=== PATIENT | male | born 1945 | race Caucasian/White ===

== ENCOUNTER 2019-04-30 15:33 | Emergency (ER) | payer MEDICARE ==
--- OUTSIDE RECORDS SUMMARY | 2019-04-30 15:40 | XMS REPORT | Continuity of Care Document ---
:1945 External Reference #:[id number] Author Name Patrick Arceo M.D. 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 Onset: 03/29/2015 Polymyalgia rheumatica Solomon Quiñonez M.D. Onset: 03/29/2015 Taking medication Solomon Quiñonez M.D. Onset: 03/29/2015 Rheumatoid arthritis Solomon Quiñonez M.D. Onset: 06/21/2015 Social History Type Date Description Comments Sex Unknown Tobacco Use Start: Unknown End: Former Cigarette Smoker Unknown Smoking Status Reviewed: 04/29/19 Former Cigarette Smoker ETOH Use Rarely consumes alcohol Tobacco Use Start: Unknown End: Patient is a former quit in 1979. Used Unknown smoker to smoke 2 PPD Exercise Exercises regularly Type/Frequency Allergies, Adverse Reactions, Alerts Active Allergies Reaction Severity Comments Date Doxycycline neuro symptoms/ tingling Moderate 03/29/2015 Medications Active Medications SIG Qnty Indications Ordering Date Provider Prednisone take one 90tabs M05.89 Patrick 5mg Tablets capsule/tablet Orlando Arceo 9 daily by mouth Nexium Take one 30caps Patrick 40mg Capsules DR capsule/tablet Orlando Arceo 8 daily by mouth Cyanocobalamin take one 90tabs Patrick 2500mcg Tablets capsule/tablet Orlando Arceo 7 Sub daily sublingallly Vitamin D3 High Potency Take one M05.89 Patrick capsule/tablet Orlando Arceo 6 1000Unit Capsules daily by mouth Folic Acid 1 by mouth every 90tabs M05.89 Patrick 1mg Tablets day Orlando Arceo 5 Methotrexate take 4 tablets 128tabs M13.0 Patrick 2.5mg Tablets each sunday Orlando Arceo 5 weekly Aspirin Adult Low Dose 1 by mouth every Unknown 81mg day [address] Hydrochlorothiazide 1 by mouth every Unknown 25mg day 0 Tablets Eylea inj. 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 Unknown 1000mg Capsules 0 Immunizations Description No Information Available Vital Signs Date Vital Result Comment 04/29/2019 11:03am Height 67.5 inches 5'7.50" Weight 221.00 lb Heart Rate 57 /min BP Systolic Sitting 128 mmHg BP Diastolic Sitting 80 mmHg Pain Level 5 O2 % BldC Oximetry 98 % BMI (Body Mass Index) 34.1 kg/m2 01/21/2019 10:53am Height 67.5 inches 5'7.50" Weight 226.50 lb Heart Rate 59 /min BP Systolic Sitting 132 mmHg BP Diastolic Sitting 78 mmHg Pain Level 2 O2 % BldC Oximetry 98 % BMI (Body Mass Index) 34.9 kg/m2 Results Test Date Facility Test Result H/L Range Note Laboratory test 04/11/2019 [facility] Erythrocyte Sed 17 mm/Hr Normal 0-19 [address] [place] [address] [phone] C Reactive Protein 2.43 mg/L Normal <8.01 2 Protein 04/11/2019 [facility] Total 7.2 g/dL 6.3 - Electrophoresis [address] Protein(Pep) 7.9 [place] [address] [phone] Albumin 3.7 g/dL 3.4-4.7 Alpha-1 Globulin 0.3 g/dL 0.1-0.3 Alpha-2 Globulin 0.9 g/dL 0.6-1.0 Beta Globulin 1.3 g/dL Abnormal 0.7-1.2 Gamma Globulin 1.1 g/dL 0.6-1.6 Albumin/Globulin Ratio 1.04 Impression See Comment 3 Comp Metabolic 04/11/2019 [facility] Sodium 139 mmol/L Normal 135-[address] [place] [address] [phone] Potassium 4.1 mmol/L Normal 3.5-5.0 Chloride 107 mmol/L Normal 101-111 Co2 Carbon Dioxide 27 mmol/L Normal 22-32 Anion Gap 5 mmol/L Normal 2-11 Glucose 91 mg/dL Normal 70-100 Blood Urea Nitrogen 16 mg/dL Normal 6-24 Creatinine 1.22 mg/dL High 0.67-1.17 BUN/Creatinine Ratio 13.1 Normal 8-20 Calcium 9.6 mg/dL Normal 8.6-10.3 Total Protein 6.8 g/dL Normal 6.4-8.9 Albumin 4.1 g/dL Normal 3.2-5.2 Globulin 2.7 g/dL Normal 2-4 Albumin/Globulin Ratio 1.5 Normal 1-3 Total Bilirubin 1.60 mg/dL High 0.2-1.0 Alkaline Phosphatase 84 U/L Normal 34-104 Alt 14 U/L Normal 7-52 Ast 13 U/L Normal 13-39 Egfr Non- 57.9 >60 Egfr 70.1 >60 4 CBC Auto 04/11/2019 [facility] White Blood 5.3 10^3/uL Normal 3.5-10.[address] [place] [address] [phone] Red Blood Count 4.81 10^6/uL Normal 4.18-5.48 Hemoglobin 14.8 g/dL Normal 14.0-18.0 Hematocrit 43 % Normal 42-52 Mean Corpuscular Volume 90 fL Normal 80-94 Mean Corpuscular Hemoglobin 31 pg Normal 27-31 Mean Corpuscular HGB Conc 34 g/dL Normal 31-36 Red Cell Distribution Width 15 % Normal 10-15 Platelet Count 242 10^3/uL Normal 150-450 Mean Platelet Volume 7.8 fL Normal 7.4-10.4 Abs Neutrophils 3.4 10^3/uL Normal 1.5-7.7 Abs Lymphocytes 1.3 10^3/uL Normal 1.0-4.8 Abs Monocytes 0.4 10^3/uL Normal 0-0.8 Abs Eosinophils 0.1 10^3/uL Normal 0-0.6 Abs Basophils 0.0 10^3/uL Normal 0-0.2 Abs Nucleated RBC 0.0 10^3/uL Granulocyte % 64.6 % Lymphocyte % 25.1 % Monocyte % 7.5 % Eosinophil % 2.0 % Basophil % 0.8 % Nucleated Red Blood Cells % 0.1 CBC Auto 01/15/2019 [facility] White Blood 5.6 10^3/uL Normal 3.5-10.[address] [place] [address] [phone] Red Blood Count 4.43 10^6/uL Normal 4.18-5.48 Hemoglobin 13.6 g/dL Low 14.0-18.0 Hematocrit 40 % Low 42-52 Mean Corpuscular Volume 91 fL Normal 80-94 Mean Corpuscular Hemoglobin 31 pg Normal 27-31 Mean Corpuscular HGB Conc 34 g/dL Normal 31-36 Red Cell Distribution Width 14 % Normal 10-15 Platelet Count 259 10^3/uL Normal 150-450 Mean Platelet Volume 7.8 fL Normal 7.4-10.4 Abs Neutrophils 3.5 10^3/uL Normal 1.5-7.7 Abs Lymphocytes 1.4 10^3/uL Normal 1.0-4.8 Abs Monocytes 0.5 10^3/uL Normal 0-0.8 Abs Eosinophils 0.2 10^3/uL Normal 0-0.6 Abs Basophils 0.0 10^3/uL Normal 0-0.2 Abs Nucleated RBC 0.0 10^3/uL Granulocyte % 62.3 % Lymphocyte % 24.0 % Monocyte % 9.6 % Eosinophil % 3.5 % Basophil % 0.6 % Nucleated Red Blood Cells % 0.0 Comp Metabolic 01/15/2019 [facility] Sodium 139 mmol/L Normal 135-[address] [place] [address] [phone] Potassium 3.5 mmol/L Normal 3.5-5.0 Chloride 104 mmol/L Normal 101-111 Co2 Carbon Dioxide 29 mmol/L Normal 22-32 Anion Gap 6 mmol/L Normal 2-11 Glucose 95 mg/dL Normal 70-100 Blood Urea Nitrogen 20 mg/dL Normal 6-24 Creatinine 1.43 mg/dL High 0.67-1.17 BUN/Creatinine Ratio 14.0 Normal 8-20 Calcium 9.2 mg/dL Normal 8.6-10.3 Total Protein 6.5 g/dL Normal 6.4-8.9 Albumin 4.0 g/dL Normal 3.2-5.2 Globulin 2.5 g/dL Normal 2-4 Albumin/Globulin Ratio 1.6 Normal 1-3 Total Bilirubin 0.90 mg/dL Normal 0.2-1.0 Alkaline Phosphatase 78 U/L Normal 34-104 Alt 11 U/L Normal 7-52 Ast 11 U/L Low 13-39 Egfr Non- 48.2 >60 Egfr 58.3 >60 5 Laboratory test 01/15/2019 [facility] Erythrocyte Sed 31 mm/Hr High 0-[address] [place] [address] [phone] C Reactive Protein 2.46 mg/L Normal <8.01 1 Please check labs 2 days before follow up 2 Please check labs 2 days before follow up 3 RESULT: No apparent monoclonal protein on serum electrophoresis. Test Performed by: [facility] [address] [place] [address] Grain Elevator Worker: Forrest Ta M.D. Ph.D.; IA# [id number] 4 Because ethnic data is not always readily available, this report includes an eGFR for both -Americans and non- Americans. The National Kidney Disease Education Program (NKDEP) does not endorse the use of the MDRD equation for patients that are not between the ages of 18 and 70, are , have extremes of body size, muscle mass, or nutritional status, or are non- or non-. According to the National Kidney Foundation, irrespective of diagnosis, the stage of the disease is based on the level of kidney function: Stage Description GFR(mL/min/1.73 m(2)) 1 Kidney damage with normal or decreased GFR 90 2 Kidney damage with mild decrease in GFR 60-89 3 Moderate decrease in GFR 30-59 4 Severe decrease in GFR 15-29 5 Kidney failure <15 (or dialysis) 5 Because ethnic data is not always readily available, this report includes an eGFR for both -Americans and non- Americans. The National Kidney Disease Education Program (NKDEP) does not endorse the use of the MDRD equation for patients that are not between the ages of 18 and 70, are , have extremes of body size, muscle mass, or nutritional status, or are non- or non-. According to the National Kidney Foundation, irrespective of diagnosis, the stage of the disease is based on the level of kidney function: Stage Description GFR(mL/min/1.73 m(2)) 1 Kidney damage with normal or decreased GFR 90 2 Kidney damage with mild decrease in GFR 60-89 3 Moderate decrease in GFR 30-59 4 Severe decrease in GFR 15-29 5 Kidney failure <15 (or dialysis) Procedures Description No Information Available Medical Devices Description No Information Available Encounters Type Date Location Provider Dx Diagnosis Office Visit 01/21/2019 Rheumatology Paulino Khoury.89 [facility] rheumatoid 10:40a [facility] arthritis w rheumatoid factor mult site N18.9 Chronic kidney disease, unspecified M17.9 Osteoarthritis of knee, unspecified Z79.899 Other jail (current) drug therapy Assessments Date Code Description Provider 04/29/2019 M05.89 Other rheumatoid arthritis with rheumatoid Patrick Arceo M.D. factor of multiple sites 04/29/2019 N18.9 Chronic kidney disease, unspecified Patrick Arceo M.D. 04/29/2019 M06.4 Inflammatory polyarthropathy Patrick Arceo M.D. 04/29/2019 M35.3 Polymyalgia rheumatica Patrick Arceo M.D. 04/29/2019 Z79.52 penitentiary (current) use of systemic steroids Patrick Arceo M.D. 01/21/2019 M05.89 Other rheumatoid arthritis with rheumatoid Patrick Arceo M.D. factor of multipl 01/21/2019 N18.9 Chronic kidney disease, unspecified Patrick Arceo M.D. 01/21/2019 M17.9 Osteoarthritis of knee, unspecified Patrick Arceo M.D. 01/21/2019 Z79.899 Other jail (current) drug therapy Patrick Arceo M.D. Plan of Treatment Future Appointment(s):06/05/2019 11:40 am - Patrick Arceo M.D. at [facility]04/29/2019 - Patrick Arceo M.D.M05.89 Other rheumatoid arthritis with rheumatoid factor of multiple sitesNew Medication:Prednisone 5 mg - take one capsule/tablet daily by mouthComments:I am glad to hear that you had a flu vaccine this month and that you are up to date on your pneumonia vaccines!N18.9 Chronic kidney disease, uqttiuohwafZ67.4 Inflammatory cepxuszatdntyihQ14.3 Polymyalgia cvwjmgnypsG81.52 penitentiary (current) use of systemic steroidsFollow up:Follow up in 4 to 6 weeks or sooner if needed Functional Status Description No Information Available Mental Status Description No Information Available Referrals Description No Information Available
--- OUTSIDE RECORDS SUMMARY | 2019-04-30 15:41 | XMS REPORT | Continuity of Care Document ---
:1945 External Reference #:[id number] Author Name Donny Lemos D.O. 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 Onset: 03/02/2015 Psychogenic impotence Donny Lemos D.O. Onset: 10/21/2015 Essential hypertension Donny Lemso D.O. Onset: 10/21/2015 Gastroesophageal reflux disease Donny Lemos D.O. Onset: 10/21/2015 Vitamin D deficiency Donny Lemos D.O. Onset: 09/18/2016 Pure hypercholesterolemia Donny Lemos D.O. Onset: 09/18/2016 Rheumatoid arthritis Donny Lemos D.O. Onset: 06/15/2017 Social History Type Date Description Comments Sex Unknown Tobacco Use Start: Unknown Denies Cigarette Use ETOH Use Occassional Alcohol Recreational Drug Use Denies Drug Use Tobacco Use Start: Unknown Non Smoker Smoking Status Reviewed: 03/06/19 Non Smoker Exercise Type/Frequency Exercises regularly Sun Exposure Does not use sunscreen Seat Belt/Car Seat Seat Belt Use - Yes Allergies, Adverse Reactions, Alerts Active Allergies Reaction Severity Comments Date Doxycycline tingling sensation 03/02/2015 Medications Active Medications SIG Qnty Indications Ordering Date Provider Pantoprazole Sodium take 1 tablet 90tabs Donny Lemos, 01/16/2019 daily before D.O. 20mg Tablets DR breakfast Losartan Potassium take 1 tablet 90tabs Donny Lemos, 04/30/2018 50mg daily in the D.O. Tablets morning for diabetic kidney protection Symbicort 2 puffs 2x/day; 13.8gm R05 Donny Lemos, 04/22/2018 80-4.5mcg/Act gargle after use D.O. Aerosol Meloxicam 1 by mouth every 90tabs M79.671 TanmayDonny asencio, 06/22/2017 7.5mg Tablets day D.O. M17.0 Vitamin B12 Unknown 06/14/2017 Vitamin D Unknown 06/14/2017 Simvastatin 1 by mouth every 90tabs E78.00 Canelo Donny, 09/18/2016 20mg Tablets day D.O. Eylea Injection 1 x a Unknown 09/17/2016 month Proair HFA inhale 2 puffs by 8.500gm J20.9 JaelDonny aleman, 02/25/2016 108(90Base) mouth every 4 hours D.O. mcg/Act Aerosol if needed wheezing Methotrexate 5 tabs each week Patrick Arceo 09/13/2015 2.5mg Tablets M.D. Folic Acid 1 by mouth every Unknown 06/21/2015 1mg Tablets day Aspirin 1 by mouth every 90tabs CaneloDonny, 03/02/2015 81mg Tablets day D.O. Prednisone Patrick Arceo 2.5mg Tablets M.D. Medications Administered in Office Medication SIG Qnty Indications Ordering Provider Date Influenza, Unspecified Unknown 02/28/2018 Injection Immunizations CPT Code Status Date Vaccine Lot # [id number] Given 03/06/2019 Influenza Vaccine, Inactivated, Subunit, [id number] Adjuvanted, For Intrmusc 04839 Given 01/15/2019 Shingrix Zoster (Shingles) Vaccine (HZV) Recomb,Subnit,Adjuvanted 18154 Given 10/30/2018 Shingrix Zoster (Shingles) Vaccine (HZV) Recomb,Subnit,Adjuvanted 75445 Given 02/26/2018 Flu, Split Virus 3Yrs 76056 Given 05/16/2017 Influenza Virus Vaccine, Quadrivalent, Split, Preservative Free 12856 Given 05/02/2017 Adacel or Boostrix, TDaP 99268 Given 03/16/2015 Prevnar 13 Vital Signs Date Vital Result Comment 03/06/2019 4:35pm BP Systolic 120 mmHg BP Diastolic 80 mmHg Weight 228.00 lb 01/16/2019 9:42am BP Systolic 122 mmHg BP Diastolic 64 mmHg Height 67.5 inches 5'7.50" Weight 227.00 lb BMI (Body Mass Index) 35.0 kg/m2 Results Description No Information Available Procedures Date Code Description Status 03/06/2019 66252 X-Ray Ankle Three Views Completed 05/06/2018 32705767 Colonoscopy Completed Medical Devices Description No Information Available Encounters Type Date Location Provider Dx Diagnosis Office Visit 03/06/2019 Main Office Donny Lemos, M25.572 Pain in left ankle 4:30p D.O. and joints of left foot R60.9 Edema, unspecified J44.1 Chronic obstructive pulmonary disease w (acute) exacerbation I10 Essential (primary) hypertension K21.9 Gastro-esophageal reflux disease without esophagitis M35.3 Polymyalgia rheumatica M06.9 Rheumatoid arthritis, unspecified Z23 Encounter for immunization Z41.8 Encntr for oth proc for purpose oth than [facility] M77.32 Calcaneal spur, left foot Assessments Date Code Description Provider 03/06/2019 M25.572 Pain in left ankle and joints of left foot Donny Lemos D.O. 03/06/2019 R60.9 Edema, unspecified Donny Lemos, D.O. 03/06/2019 J44.1 Chronic obstructive pulmonary disease with Donny Lemos, D.O. (acute) exacerbat 03/06/2019 I10 Essential (primary) hypertension Donny Lemos D.O. 03/06/2019 K21.9 Gastro-esophageal reflux disease without Donny Lemos, D.O. esophagitis 03/06/2019 M35.3 Polymyalgia rheumatica Donny Lemos D.O. 03/06/2019 M06.9 Rheumatoid arthritis, unspecified Donny Lemos, D.O. 03/06/2019 Z23 Encounter for immunization Donny Lemos D.O. 03/06/2019 Z41.8 Encounter for other procedures for purposes [facility] 03/06/2019 M77.32 Calcaneal spur, left foot Donny Lmeos D.O. 01/16/2019 J44.1 Chronic obstructive pulmonary disease with [place], Donny, D.O. (acute) exacerbat 01/16/2019 I10 Essential (primary) hypertension Donny Lemos D.O. 01/16/2019 K21.9 Gastro-esophageal reflux disease without Donny Lemos D.O. esophagitis 01/16/2019 M35.3 Polymyalgia rheumatica Donny Lemos D.O. 01/16/2019 M06.9 Rheumatoid arthritis, unspecified Donny Lemos D.O. 01/16/2019 R94.4 Abnormal results of kidney function studies Donny Lemos D.O. 01/16/2019 Z68.35 Body mass index (BMI) 35.0-35.9, adult Donny Lemos D.O. Plan of Treatment Future Appointment(s):01/19/2020 9:15 am - Donny Lemos D.O. at Main Oqtovr9207/22/2019 10:00 am - Donny Lemos D.O. at Main Wtrzlm4403/06/2019 - Donny Lemos D.O.M25.572 Pain in left ankle and joints of left footR60.9 Edema, ukfvxldleutL00.1 Chronic obstructive pulmonary disease with (acute) rlidalwdgM84 Essential (primary) kxprnlpefakfU80.9 Gastro-esophageal reflux disease without nivqwwalwurJ62.3 Polymyalgia mpoyifclrbN48.9 Rheumatoid arthritis, hrawzvvcgjfV17 Encounter for yxlddwbebjhsM85.8 Encounter for other procedures for purposes other than remedying health wgufuB56.32 Calcaneal spur, left foot Functional Status Description No Information Available Mental Status Description No Information Available Referrals Description No Information Available
[2019-04-30 17:37] VITALS: BP 125/85
--- NOTE | 2019-04-30 18:42 | UC ---
Throat Pain/Nasal Bacilio HPI - HPI Summary HPI Summary: 73-year-old male comes in with a chief complaint of one day of upper respiratory tract infection symptoms. Patient reports some rhinorrhea is gone into his chest is having yellow sputum. Patient is on methotrexate and prednisone daily for rheumatoid arthritis and therefore he is immunocompromised. Patient stopped taking his methotrexate when he started feeling ill because he knows it has interaction with antibiotics. Patient reports that when he has these symptoms he ends up quickly going into a pneumonia. Is also having some wheezing. - History of Current Complaint Chief Complaint: UCRespiratory Stated Complaint: COLD/FLU Time Seen by Provider: 04/30/19 18:28 Pain Intensity: 2 - Allergies/Home Medications Allergies/Adverse Reactions: Allergies Allergy/AdvReac Type Severity Reaction Status Date / Time doxycycline AdvReac Intermediate See Comment Verified 04/30/19 17:26 Home Medications: Home Medications Aspirin EC TAB* [Ecotrin EC Low Dose 81 MG*] 81 mg PO DAILY 04/30/19 [History Confirmed 04/30/19] Cholecalciferol (Vitamin D3) [Vitamin D3] 1 cap DAILY 04/30/19 [History Confirmed 04/30/19] Cyanocobalamin TAB* [Vitamin B12 TAB*] 2,000 mcg PO DAILY 04/30/19 [History Confirmed 04/30/19] Folic Acid TAB* [Folvite TAB*] 1 mg PO DAILY 04/30/19 [History Confirmed ] Losartan TAB* [Cozaar TAB*] 50 mg PO DAILY 04/30/19 [History Confirmed 04/30/19] Methotrexate TAB* 5 tab WEEKLY 04/30/19 [History Confirmed 04/30/19] Pantoprazole TAB * [Protonix TAB*] 20 mg PO DAILY 04/30/19 [History Confirmed ] predniSONE TAB* [Deltasone TAB*] 5 mg PO DAILY 04/30/19 [History Confirmed 04/30] PMH/Surg Hx/FS Hx/Imm Hx Previously Healthy: Yes - rheumatoid arthritis Cardiovascular History: Hypertension GI/ History: Gastroesophageal Reflux - Surgical History Surgical History: Yes Surgery Procedure, Year, and Place: Hemorrhoids - Family History Known Family History: Positive: Hypertension, Other - autoimmune disease - Social History Alcohol Use: None Substance Use Type: None Smoking Status (MU): Former Smoker When Did the Patient Quit Smoking/Using Tobacco: 30 yrs ago Review of Systems All Other Systems Reviewed And Are Negative: Yes Constitutional: Positive: Other - SEE HPI Skin: Positive: Negative Eyes: Positive: Negative ENT: Positive: Nasal Discharge Respiratory: Positive: Cough, Other - SEE HPI Cardiovascular: Positive: Negative Gastrointestinal: Positive: Negative Motor: Positive: Negative Neurovascular: Positive: Negative Musculoskeletal: Positive: Negative Neurological: Positive: Negative Psychological: Positive: Negative Is Patient Immunocompromised?: No Physical Exam Triage Information Reviewed: Yes Appearance: Well-Appearing, No Pain Distress, Well-Nourished Vital Signs: Initial Vital Signs Temp 98.3 F 04/30/19 17:32 Pulse 64 04/30/19 17:32 Resp 16 04/30/19 17:32 BP 125/85 04/30/19 17:32 Pulse Ox 100 04/30/19 17:32 Vital Signs Reviewed: Yes Eye Exam: Normal ENT: Positive: Pharyngeal erythema, Nasal congestion, TMs normal Neck: Positive: Supple Respiratory: Positive: No respiratory distress, Wheezing Cardiovascular: Positive: RRR Musculoskeletal: Positive: Strength Intact, ROM Intact Neurological: Positive: Alert, Muscle Tone Normal Psychological: Positive: Age Appropriate Behavior Skin Exam: Normal Throat Pain/Nasal Course/Dx - Course Course Of Treatment: I discussed viral versus bacterial infections with the patient. Patient prefers to be on antibiotic at this time. The patient is immunocompromised because of his rheumatoid arthritis being on prednisone and methotrexate. Patient did not take his methotrexate today because he knows it interacts with antibiotics and he plans to stay off the methotrexate while he is on the antibiotics. Patient reports that azithromycin does not work for him. He reports an acceptable side effects with doxycycline. We'll treat with Augmentin plus azithromycin. We discussed the possibilities and Levaquin however with the potential problems with tendon injury we are avoiding Levaquin at this time. With the wheezing we will also treat with albuterol. Patient's to get reevaluated if worse or any questions or concerns. - Differential Dx/Diagnosis Provider Diagnosis: Bronchitis with bronchospasm Discharge ED - Sign-Out/Discharge Documenting (check all that apply): Patient Departure All imaging exams completed and their final reports reviewed: No Studies - Discharge Plan Condition: Stable Disposition: HOME Prescriptions: Albuterol HFA INHALER* [Ventolin HFA Inhaler*] 2 puff INH Q4H PRN #1 mdi PRN Reason: Wheezing Amoxicillin/Clavulanate TAB* [Augmentin TAB 875*] 875 mg PO BID #20 tab Azithromyxin ALIRIO (NF) [Z-Alirio (Zithromax) 250 mg tabs #6] 2 tab PO .TODAY, THEN 1 DAILY #6 tab Patient Education Materials: Acute Bronchitis (ED), Bronchospasm (ED) Referrals: Donny Lemos DO [Primary Care Provider] - Additional Instructions: FOLLOW UP WITH YOUR DOCTOR. Do not take the methotrexate while you're on the antibiotics. GO TO THE EMERGENCY DEPARTMENT IF NOT IMPROVING OR YOUR CONDITION WORSENS OR ANY QUESTIONS OR CONCERNS. - Billing Disposition and Condition Condition: STABLE Disposition: Home
== END 2019-04-30 18:48 | disposition home or self-care (01) ==
LOC: UCCORT 15:33
DX: J98.01 Acute bronchospasm (principal); J40 Bronchitis, not specified as acute or chronic; M06.9 Rheumatoid arthritis, unspecified; I10 Essential (primary) hypertension; K21.9 Gastro-esophageal reflux disease without esophagitis; J39.2 Other diseases of pharynx; R09.81 Nasal congestion; Z79.899 Other long term (current) drug therapy; Z87.891 Personal history of nicotine dependence; Z88.8 Allergy status to other drugs, medicaments and biological substances
CPT/HCPCS: 99212; G0463

== ENCOUNTER 2019-09-11 08:40 | Emergency (ER) | payer MEDICARE ==
--- OUTSIDE RECORDS SUMMARY | 2019-09-11 08:59 | XMS REPORT | Continuity of Care Document ---
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 Onset: 03/02/2015 Psychogenic impotence Donny Lemos D.O. Onset: 10/21/2015 Essential hypertension Donny Lemos D.O. Onset: 10/21/2015 Gastroesophageal reflux disease Donny [...] Start: Unknown Non Smoker Smoking Status Reviewed: 08/04/19 Non Smoker Exercise Type/Frequency Exercises regularly Sun [...] Meloxicam 1 by mouth every 90tabs M79.671 Donny Lemos, 06/22/2017 7.5mg Tablets day D.O. M17.0 Vitamin B12 Unknown 06/14/2017 Vitamin D Unknown 06/14/2017 Eylea Injection 1 x a Unknown 09/17/2016 month Proair HFA inhale 2 puffs by 8.500gm J20.9 Donny Lemos, 02/25/2016 108(90Base) mouth every 4 hours D.O. mcg/Act Aerosol if needed wheezing Methotrexate 5 tabs each week Patrick Arceo 09/13/2015 2.5mg Tablets M.D. Folic Acid 1 by mouth every day Unknown 06/21/2015 1mg Tablets Aspirin 1 by mouth every day 90tabs Donny Lemos, 03/02/2015 81mg Tablets D.O. Prednisone Patrick Arceo 2.5mg Tablets M.D. Medications Administered in Office Medication SIG Qnty Indications Ordering Provider Date Influenza, Unspecified Unknown 02/28/2018 Injection Immunizations CPT Code Status Date Vaccine Lot # [id number] Given 04/11/2019 Pneumococcal Immunization 36362 Given 03/06/2019 Influenza Vaccine, Inactivated, Subunit, [id number] Adjuvanted, For Intrmusc 92925 Given 01/15/2019 Shingrix Zoster (Shingles) Vaccine (HZV) Recomb,Subnit,Adjuvanted 03525 Given 10/30/2018 Shingrix Zoster (Shingles) Vaccine (HZV) Recomb,Subnit,Adjuvanted 41893 Given 02/26/2018 Flu, Split Virus 3Yrs 02805 Given 05/16/2017 Influenza Virus Vaccine, Quadrivalent, Split, Preservative Free 14129 Given 05/02/2017 Adacel or Boostrix, TDaP 55962 Given 03/16/2015 Prevnar 13 Vital Signs Date Vital Result Comment 08/04/2019 10:38am BP Systolic 162 mmHg BP Diastolic 98 mmHg Height 67.5 inches 5'7.50" Weight 237.00 lb BMI (Body Mass Index) 36.6 kg/m2 06/27/2019 2:22pm BP Systolic 135 mmHg BP Diastolic 75 mmHg Weight 231.00 lb Results Test Acquired Date Facility Test Result H/L Range Note Laboratory test 04/29/2019 [facility] Uric Acid 3.8 mg/dL Low 4.4- 7.6 finding [phone] Procedures Date Code Description Status 08/04/2019 80166 Electrocardiogram Complete Completed 03/06/2019 17814 X-Ray Ankle Three Views Completed 05/06/2018 69610112 Colonoscopy Completed Medical Devices Description No Information Available Encounters Type Date Location Provider Dx Diagnosis Office Visit 08/04/2019 Main Office Donny Lemos, I10 Essential (primary ) 10:15a D.O. hypertension J44.9 Chronic obstructive pulmonary disease, unspecified K21.9 Gastro-esophageal reflux disease without esophagitis M06.9 Rheumatoid arthritis, unspecified M35.3 Polymyalgia rheumatica Z68.36 Body mass index (BMI) 36.0-36.9, adult Office Visit 06/27/2019 1:30p Main Office Donny Lemos, I10 Essential ( primary) D.O. hypertension M06.9 Rheumatoid arthritis, unspecified M25.572 Pain in left ankle and joints of left foot R35.1 Nocturia Office Visit 03/06/2019 4:30p Main Office Donny Lemos, M25.572 Pain in left D.O. ankle and joints of left foot R60.9 Edema, unspecified I10 Essential (primary) hypertension M06.9 Rheumatoid arthritis, unspecified Z23 Encounter for immunization Z41.8 [facility].32 Calcaneal spur, left foot Assessments Date Code Description Provider 08/04/2019 I10 Essential (primary) hypertension Donny Lemos, D.O. 08/04/2019 J44.9 Chronic obstructive pulmonary disease, Donny Lemos, D.O. unspecified 08/04/2019 K21.9 Gastro-esophageal reflux disease without Donny Lemos, D.O. esophagitis 08/04/2019 M06.9 Rheumatoid arthritis, unspecified Donny Lemos, D.O. 08/04/2019 M35.3 Polymyalgia rheumatica Donny Lemos, D.O. 08/04/2019 Z68.36 Body mass index (BMI) 36.0-36.9, adult Sopchak, Donny, D.O. 06/27/2019 I10 Essential (primary) hypertension Donny Lemos D.O. 06/27/2019 M06.9 Rheumatoid arthritis, unspecified Donny Lemos D.O. 06/27/2019 M25.572 Pain in left ankle and joints of left foot Donny Lemos D.O. 06/27/2019 R35.1 Nocturia Donny Lemos D.O. 03/06/2019 M25.572 Pain in left ankle and joints of left foot Donny Lemos D.O. 03/06/2019 R60.9 Edema, unspecified Donny Lemos D.O. 03/06/2019 I10 Essential (primary) hypertension Donny Lemos D.O. 03/06/2019 M06.9 Rheumatoid arthritis, unspecified Donny Lemos D.O. 03/06/2019 Z23 Encounter for immunization Donny Lemos D.O. 03/06/2019 Z41.8 Encounter for other procedures for purposes Donny Lemos D.O. other than remedying health state 03/06/2019 M77.32 Calcaneal spur, left foot Donny Lemos D.O. Plan of Treatment Future Appointment(s):09/01/2019 9:45 am - Donny Lemos D.O. at Main Lktylu8201/19/2020 9:15 am - Donny Lemos D.O. at Main Pjbzpk9308/04/2019 - Donny Lemos D.O.I10 Essential (primary) hypertensionFollow up:1 month recheck HTN and fasting lipid panel results discuss statin and blood pressure medications and cough.J44.9 Chronic obstructive pulmonary disease, bpupdbhethqB60.9 Gastro-esophageal reflux disease without amwwarivxacR13.9 Rheumatoid arthritis, ifhcxhubtkpB34.3 Polymyalgia vjhvbgimmlI82.36 Body mass index (BMI) 36.0-36.9, adult Functional Status Description No Information Available Mental Status Description No Information Available Referrals Description No Information Available
--- OUTSIDE RECORDS SUMMARY | 2019-09-11 08:59 | XMS REPORT | Continuity of Care Document ---
:1945 External Reference #:[id number] Author Name Donny Lemos D.O. 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 Prednisone Patrick Arceo 2.5mg Tablets M.D. Medications Administered in Office Medication SIG Qnty Indications Ordering Provider Date Influenza, Unspecified Unknown 02/28/2018 Injection Immunizations CPT Code Status Date Vaccine Lot # [id number] Given 04/11/2019 Pneumococcal Immunization 82990 Given 03/06/2019 Influenza Vaccine, Inactivated, Subunit, [id number] Adjuvanted, For Intrmusc 39099 Given 01/15/2019 Shingrix Zoster (Shingles) Vaccine (HZV) Recomb,Subnit,Adjuvanted 90567 Given 10/30/2018 Shingrix Zoster (Shingles) Vaccine (HZV) Recomb,Subnit,Adjuvanted 49804 Given 02/26/2018 Flu, Split Virus 3Yrs 73265 Given 05/16/2017 Influenza Virus Vaccine, Quadrivalent, Split, Preservative Free 65365 Given 05/02/2017 Adacel or Boostrix, TDaP 02395 Given 03/16/2015 Prevnar 13 Vital Signs Date Vital Result Comment 08/04/2019 10:38am BP Systolic 162 mmHg BP Diastolic 98 mmHg Height 67.5 inches 5'7.50" Weight 237.00 lb BMI (Body Mass Index) 36.6 kg/m2 06/27/2019 2:22pm BP Systolic 135 mmHg BP Diastolic 75 mmHg Weight 231.00 lb Results Test Acquired Date Facility Test Result H/L Range Note Laboratory test 04/29/2019 [facility] Uric Acid 3.8 mg/dL Low 4.4- 7.6 finding [phone] Procedures Date Code Description Status 08/04/2019 66954 Electrocardiogram Complete Completed 03/06/2019 83484 X-Ray Ankle Three Views Completed 05/06/2018 03936374 Colonoscopy Completed Medical Devices Description No Information Available Encounters Type Date Location Provider Dx Diagnosis Office Visit 06/27/2019 Main Office Donny Lemos, I10 Essential (primary ) 1:30p D.O. hypertension M06.9 Rheumatoid arthritis, unspecified M25.572 Pain in left ankle and joints of left foot R35.1 Nocturia Office Visit 03/06/2019 4:30p Main Office Donny Lemos, M25.572 Pain in left D.O. ankle and joints of left foot R60.9 Edema, unspecified I10 Essential (primary) hypertension M06.9 Rheumatoid arthritis, unspecified Z23 Encounter for immunization Z41.8 Encntr for oth proc for purpose oth [facility] M77.32 Calcaneal spur, left foot Assessments Date Code Description Provider 08/04/2019 I10 Essential (primary) hypertension Dnony Lemos D.O. 08/04/2019 J44.9 Chronic obstructive pulmonary disease, Donny Lemos D.O. unspecified 08/04/2019 K21.9 Gastro-esophageal reflux disease without Donny Lemos D.O. esophagitis 08/04/2019 M06.9 Rheumatoid arthritis, unspecified Donny Lemos D.O. 08/04/2019 M35.3 Polymyalgia rheumatica Donny Lemos D.O. 08/04/2019 Z68.36 Body mass index (BMI) 36.0-36.9, adult Donny Lemos D.O. 06/27/2019 I10 Essential (primary) hypertension Donny [...] am - Donny Lemos D.O. at Main Yuasab4501/19/2020 9:15 am - Donny Lemos D.O. at Main Jttqaj3608/04/2019 - Donny Lemos D.O.I10 Essential (primary) hypertensionFollow up:1 month recheck HTN and fasting lipid panel results discuss statin and blood pressure medications and cough.J44.9 Chronic obstructive pulmonary disease, qkvvgcleoygN65.9 Gastro-esophageal reflux disease without hphalydbvnfM19.9 Rheumatoid arthritis, rsutehiuwmbM15.3 Polymyalgia hceegvwgkrZ72.36 Body mass index (BMI) 36.0-36.9, adult Functional Status Description No Information Available Mental Status Description No Information Available Referrals Description No Information Available
--- OUTSIDE RECORDS SUMMARY | 2019-09-11 08:59 | XMS REPORT | Continuity of Care Document ---
:1945 External Reference #:[id number] Author Name Donny Lemos D.O. 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 Onset: 03/02/2015 Psychogenic impotence Donny Lemos D.O. Onset: 10/21/2015 Essential hypertension Donny Lemos D.O. Onset: 10/21/2015 Gastroesophageal reflux disease oDnny Lemos D.O. Onset: 10/21/2015 Vitamin D deficiency [...] Medications SIG Qnty Indications Ordering Date Provider Sulfamethoxazole/Trim 1 by mouth twice a 20tabs J44.1 Donny Lemos, 06/2020 ethoprim DS day x 10 days D.O. 800-160mg Tablets Pantoprazole Sodium take 1 tablet 90tabs Donny Lemos, 01/16/2019 daily before D.O. 20mg Tablets DR breakfast Losartan Potassium take 1 tablet 90tabs Canelo Donny, 04/30/2018 50mg daily in the D.O. Tablets morning for diabetic kidney protection Symbicort 2 puffs 2x/day; 13.8gm R05 Canelo Donny, 04/22/2018 80-4.5mcg/Act gargle after use D.O. Aerosol Meloxicam 1 by mouth every 90tabs M79.671 Donny Lemos, 06/22/2017 7.5mg Tablets day D.O. M17.0 Vitamin B12 Unknown 06/14/2017 Vitamin D Unknown 06/14/2017 Eylea Injection 1 x a Unknown 09/17/2016 month Proair HFA inhale 2 puffs by 8.500gm J20.9 Canelo Donny, 02/25/2016 108(90Base) mouth every 4 hours D.O. mcg/Act Aerosol if needed wheezing Methotrexate 5 tabs each week Patrick Arceo 09/13/2015 2.5mg Tablets M.D. Folic Acid 1 by mouth every day Unknown 06/21/2015 1mg Tablets Aspirin 1 by mouth every day 90tabs Canelo Donny, 03/02/2015 81mg Tablets D.O. Prednisone 1 po daily Patrick Arceo 5mg Tablets M.D. Medications Administered in Office Medication SIG Qnty Indications Ordering Provider Date Influenza, Unspecified Unknown 02/28/2018 Injection Immunizations CPT Code Status Date Vaccine Lot # [id number] Given 04/11/2019 Pneumococcal Immunization 74718 Given 03/06/2019 Influenza Vaccine, Inactivated, Subunit, [id number] Adjuvanted, For Intrmusc 05121 Given 01/15/2019 Shingrix Zoster (Shingles) Vaccine (HZV) Recomb,Subnit,Adjuvanted 55833 Given 10/30/2018 Shingrix Zoster (Shingles) Vaccine (HZV) Recomb,Subnit,Adjuvanted 87061 Given 02/26/2018 Flu, Split Virus 3Yrs 43106 Given 05/16/2017 Influenza Virus Vaccine, Quadrivalent, Split, Preservative Free 72074 Given 05/02/2017 Adacel or Boostrix, TDaP 94603 Given 03/16/2015 Prevnar 13 Vital Signs Date Vital Result Comment 08/13/2019 4:37pm BP Systolic 140 mmHg BP Diastolic 80 mmHg Heart Rate 75 /min O2 % BldC Oximetry 97 % Body Temperature 97.5 F 08/04/2019 10:38am BP Systolic 162 mmHg BP Diastolic 98 mmHg Height 67.5 inches 5'7.50" Weight 237.00 lb BMI (Body Mass Index) 36.6 kg/m2 Results Test Acquired Date Facility Test Result H/L Range Note Laboratory test 04/29/2019 [facility] Uric Acid 3.8 mg/dL Low 4.4- 7.6 finding [phone] Procedures Date Code Description Status 08/04/2019 94698 Electrocardiogram Complete Completed 03/06/2019 78657 X-Ray Ankle Three Views Completed 05/06/2018 43099442 Colonoscopy Completed Medical Devices Description No Information Available Encounters Type Date Location Provider Dx Diagnosis Office Visit 08/04/2019 Main Office Donny Lemos I10 Essential (primary ) 10:15a D.O. 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 (acute) exacerbation 08/04/2019 I10 Essential (primary) hypertension Donny Lemos D.O. 08/04/2019 J44.9 Chronic obstructive pulmonary disease, Donny Lemos D.O. unspecified 08/04/2019 R20.0 Anesthesia of skin Donny Lemos D.O. 08/04/2019 M35.3 Polymyalgia rheumatica Donny Lemos D.O. 08/04/2019 Z79.899 Other [facility] (current) drug therapy Donny Lemos D.O. 08/04/2019 E66.9 Obesity, unspecified Donny Lemos D.O. 08/04/2019 Z68.36 Body mass [...] am - Donny Lemos D.O. at Main Reypfc0501/19/2020 9:15 am - Donny Lemos D.O. at Main Cekkco7908/13/2019 - Donny Lemos D.O.J44.1 Chronic obstructive pulmonary disease with (acute) exacerbationNew Medication:Sulfamethoxazole/Trimethoprim DS 800-160 mg - 1 by mouth twice a day x 10 daysFollow up:as scheduled Functional Status Description No Information Available Mental Status Description No Information Available Referrals Description No Information Available
[2019-09-11 09:24] VITALS: BP 137/81
--- NOTE | 2019-09-11 09:54 | UC ---
Respiratory Complaint HPI - HPI Summary HPI Summary: 73 yo with hx of RA, with onset of cough about 2 months ago. Initially began with URI symptoms, no fever. He has had presumptive treatment for pneumonia with levofloxacin and also took bactrim, and increase daily steroid. He is using albuterol up to 4 times per day, last dose was 0300. - History of Current Complaint Chief Complaint: UCRespiratory Stated Complaint: CONGESTION Time Seen by Provider: 09/11/19 09:09 Hx Obtained From: Patient Onset/Duration: Gradual Onset, Lasting Weeks Timing: Constant Severity Initially: Moderate Severity Currently: Moderate Pain Intensity: 0 Character: Cough: Productive Aggravating Factors: Exertion, Recumbent Position Alleviating Factors: Bronchodilator Associated Signs And Symptoms: Positive: Dyspnea, URI, Nasal Congestion. Negative: Fever, Chills - Risk Factors Pulmonary Embolism Risk Factors: Negative Cardiac Risk Factors: Hypertension Pseudomonas Risk Factors: Negative Tuberculosis Risk Factors: Negative - Allergies/Home Medications Allergies/Adverse Reactions: Allergies Allergy/AdvReac Type Severity Reaction Status Date / Time doxycycline AdvReac Intermediate See Comment Verified 09/11/19 09:09 Home Medications: Home Medications Albuterol HFA INHALER* [Ventolin HFA Inhaler*] 2 puff INH Q4H PRN #1 mdi [Rx Confirmed 09/11/19] Aspirin EC TAB* [Ecotrin EC Low Dose 81 MG*] 81 mg PO DAILY 04/30/19 [History Confirmed 09/11/19] Cholecalciferol (Vitamin D3) [Vitamin D3] 1 cap DAILY 04/30/19 [History Confirmed 09/11/19] Cyanocobalamin TAB* [Vitamin B12 TAB*] 2,000 mcg PO DAILY 04/30/19 [History Confirmed 09/11/19] Folic Acid TAB* [Folvite TAB*] 1 mg PO DAILY 04/30/19 [History Confirmed ] Losartan TAB* [Cozaar TAB*] 50 mg PO DAILY 04/30/19 [History Confirmed 09/11/19] Methotrexate TAB* 5 tab WEEKLY 04/30/19 [History Confirmed 09/11/19] Pantoprazole TAB * [Protonix TAB*] 20 mg PO DAILY 04/30/19 [History Confirmed ] predniSONE 5 mg TAB [Deltasone TAB*] 5 mg PO DAILY 04/30/19 [History Confirmed 09/11/19] PMH/Surg Hx/FS Hx/Imm Hx - Additional Past Medical History Additional PMH: obese Rheumatoid arthritis. Cardiovascular History: Hypertension GI/ History: Gastroesophageal Reflux - Surgical History Surgical History: Yes Surgery Procedure, Year, and Place: Hemorrhoids - Family History Known Family History: Positive: Hypertension, Other - autoimmune disease - Social History Occupation: Retired Lives: With Family Alcohol Use: None Substance Use Type: None Smoking Status (MU): Former Smoker When Did the Patient Quit Smoking/Using Tobacco: 30 yrs ago Review of Systems All Other Systems Reviewed And Are Negative: Yes Constitutional: Positive: Fatigue Skin: Positive: Negative Eyes: Positive: Negative ENT: Positive: Negative Respiratory: Positive: Shortness Of Breath - mild, Cough, Other Cardiovascular: Positive: Negative. Negative: Palpitations, Chest Pain Gastrointestinal: Positive: Negative - hx of reflux Genitourinary: Positive: Negative Motor: Positive: Negative Neurovascular: Positive: Negative Musculoskeletal: Positive: Negative Neurological/Mental Status: Positive: Negative Psychological: Positive: Negative Is Patient Immunocompromised?: No Physical Exam Triage Information Reviewed: Yes Appearance: Well-Appearing, No Pain Distress Vital Signs: Initial Vital Signs Temp 98 F 09/11/19 09:13 Pulse 57 09/11/19 09:13 Resp 18 09/11/19 09:13 BP 137/81 09/11/19 09:13 Pulse Ox 98 09/11/19 09:13 ENT: Positive: Pharynx normal Neck: Positive: Supple, Nontender, No Lymphadenopathy Respiratory: Positive: Decreased breath sounds, Wheezing - throughout Musculoskeletal Exam: Normal Neurological Exam: Normal Neurological: Positive: Alert, Muscle Tone Normal Psychological Exam: Normal Skin Exam: Normal Diagnostics - Radiology No standard instances Radiology Interpretation Completed By: Radiologist - Patient Name: BELL JUSTICE Medical Record#: [id number] Ordering Physician: Ana Rojas MD Acct.#: [id number] : 1945 Age: 73 Sex: M [facility] Exam Date: 09/11/19 1005 ADM Status: REG ER Order Information: CHEST PA & LAT 2 VWS Accession Number : [id number] CPT: 57297 HISTORY: cough x 2 months COMPARISONS: Prior study of June 02, 2016 VIEWS: 4: Frontal dual-energy and lateral views of the chest. FINDINGS: CARDIOMEDIASTINAL SILHOUETTE: The cardiomediastinal silhouette is normal. EMILIANO: The emiliano are normal. PLEURA: The costophrenic angles are sharp. No pleural abnormalities are noted. LUNG PARENCHYMA: The lungs are clear. ABDOMEN: The upper abdomen is clear. There is no subphrenic gas. BONES AND SOFT TISSUES: No bone or soft tissue abnormalities are noted. OTHER: None. IMPRESSION: NO ACTIVE CARDIOPULMONARY DISEASE. <Electronically signed by Rosalba Mckeon MD in [place]> 09/11/19 1030 Dictated By: Rosalba Mckeon MD Dictated Date/Time: 09/11/19 1029 Transcribed Date/ Time: 09/11/19 1029 Copy to: CC:Ana Rojas MD; Donny Lemos DO Imaging [facility] Urgent [facility] Urgent [facility] [address] [address] ph ([phone]) ph ([phone] ) ph ([phone]) This report is only to be considered final once signed by the Provider(s) as displayed in the "<Electronically Signed by >" field (s). Absence of a signature indicates the report is in a draft status and still needs to be finalized. In the event this document was created by someone other than the signing Provider, the individual initiating the document will be listed in the "Entered by:" or "Dictated by:" nj. 1 of 1 Respiratory Course/Dx - Course Course Of Treatment: Chest xray negative. Reviewed that his persistent wheeze suggests uncontrolled asthma. He has had lab work done today and has follow up pending with Dr. Arceo. Advised use of Symbicort, which he has not been using although he has an rx for it, because he thinks that the albuterol is more helpful. - Differential Dx/Diagnosis Differential Diagnosis/HQI/PQRI: Asthma, Bronchitis, Laryngitis, Lower Resp Infection Provider Diagnosis: Asthma Discharge ED - Sign-Out/Discharge Documenting (check all that apply): Patient Departure All imaging exams completed and their final reports reviewed: Yes - Discharge Plan Condition: Stable Disposition: HOME Patient Education Materials: Asthma (ED) Referrals: Donny Lemos DO [Primary Care Provider] - Additional Instructions: Begin twice daily treatment with Symbicort. You can continue use of albuterol to relieve wheeze, but in 3 to 4 days you should feel decreased need, decreased cough and wheeze. If cough persists, you will need more testing. RINSE YOUR MOUTH AFTER USE OF SYMBICORT TO DECREASE ORAL THRUSH RISK AND RISK OF VOICE CHANGE. Follow up with Dr. Arceo next week or with Dr. Lemos. - Billing Disposition and Condition Condition: STABLE Disposition: Home
== END 2019-09-11 10:54 | disposition home or self-care (01) ==
LOC: UCCORT 08:40
DX: J45.909 Unspecified asthma, uncomplicated (principal); R09.81 Nasal congestion; K21.9 Gastro-esophageal reflux disease without esophagitis; Z88.1 Allergy status to other antibiotic agents; Z79.899 Other long term (current) drug therapy; Z79.82 Long term (current) use of aspirin; Z87.891 Personal history of nicotine dependence; I12.9 Hypertensive chronic kidney disease with stage 1 through stage 4 chronic kidney disease, or unspecified chronic kidney disease; N18.9 Chronic kidney disease, unspecified; M05.89 Other rheumatoid arthritis with rheumatoid factor of multiple sites; M06.4 Inflammatory polyarthropathy; Z68.36 Body mass index [BMI] 36.0-36.9, adult
CPT/HCPCS: 71046; 99211; G0463